=== PATIENT | female | born 1985 | race African-American/Black ===

== ENCOUNTER 2016-08-12 13:06 | Emergency (ER) | payer OTHER ==
[~2016-08-12] VITALS: Ht 154.9 cm; Wt 71.7 kg
[2016-08-12 13:36] LABS: URINE BILIRUBIN NEGATIVE (Negative); URINE BLOOD 2+ (Negative); URINE COLOR YELLOW; URINE GLUCOSE-RANDOM* NEGATIVE (Negative); URINE KETONES NEGATIVE (Negative); URINE LEUKOCYTES-REFLEX NEGATIVE (Negative); URINE PROTEIN (DIPSTICK) TRACE (Negative); URINE SPECIFIC GRAVITY 1.015 (1.003-1.035); URINE UROBILINOGEN 0.2 E.U./dl (0.2-1.0)
[2016-08-12 13:50] LABS: SQUAMOUS 4-10 Moderate /LPF (0-3); URINE RBC >20 Many /HPF (0-2); URINE WBC-REFLEX 0-5 Rare /HPF (0-5)
[2016-08-12 13:51] LABS: AMORPHOUS PHOSPHATES Many /LPF (None Seen); CASTS None Seen /LPF (None Seen)
[2016-08-12 14:04] LABS: HEMATOCRIT 39.2 % (37.0-47.0); HEMOGLOBIN 13.1 gm/dL (12.0-15.0); MCH 27.5 pg (26.0-34.0); MCHC 33.5 % (28.0-37.0); MCV 82.2 fL (80.0-100.0); RBC 4.76 mil/uL (4.20-5.00); RDW 14.1 % (10.5-14.5); WBC 11.1 thou/uL (4.0-11.0)
[2016-08-12 14:12] LABS: CREATININE 0.7 mg/dL (0.6-1.3); POTASSIUM 3.9 mmol/L (3.5-5.1)
[2016-08-12] MEDS ORDERED: NAPROSYN500 MG PO (15:24)
[2016-08-12] MEDS ORDERED: PHENERGAN 25 MG25 M1 PO (15:24)
[2016-08-12 16:29] VITALS: BP 116/66
[2016-08-15 14:10] LABS: CHLAMYDIA TRACHOMATIS-PCR Negative (Negative); NEISSERIA GONORRHEA-PCR Negative (Negative)
== END 2016-08-12 16:30 | disposition home or self-care (01) ==
LOC: ER 13:06
PROVIDERS: Physician Assistant
DX: R10.2 Pelvic and perineal pain (principal); R11.2 Nausea with vomiting, unspecified; R19.7 Diarrhea, unspecified; F41.9 Anxiety disorder, unspecified